=== PATIENT | male | born 1985 | race African-American/Black ===

== ENCOUNTER 2017-11-17 16:59 | Emergency (ER) | payer SELFPAY ==
[~2017-11-17] VITALS: Ht 188 cm; Wt 120.0 kg
[2017-11-17 17:00] VITALS: BP 165/92; PULSE 96; RESP 16; TEMP 99.5; O2SAT 98
--- NOTE | 2017-11-17 17:58 | PD ---
HPI Chief Complaint: Cold / Flu Symptoms Time Seen by Provider: 17:39 Travel History International Travel<30 days: No Contact w/Intl Traveler<30days: No Traveled to known affect area: No History of Present Illness HPI 32-year-old male presents emergency department complaining of cough, congestion , subjective fever, diarrhea for 3 days. 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 States that he is tried couple of medications [id number] to include TheraFlu and Mucinex without significant relief. States he does occasionally have chest discomfort with coughing. Denies shortness of breath, abdominal pain. Patient denies chronic medical issues or medication use. PFSH Past Medical History Medical History: Denies Significant Hx Past Surgical History Surgical History: No Previous Surgery Social History Alcohol Use: Yes (occasional) Tobacco Use: Yes (1ppd) Substance Use: No Allergies-Medications (Allergen,Severity, Reaction): Coded Allergies: No Known Allergies (Unverified , 11/17/17) Reported Meds & Prescriptions Reported Meds & Active Scripts Active No Active Prescriptions or Reported Medications Review of Systems Except as stated in HPI: all other systems reviewed are Neg Physical Exam Narrative GENERAL: Well-nourished, well-developed patient. SKIN: Focused skin assessment warm/dry. HEAD: Normocephalic. EYES: No scleral icterus. No injection or drainage. NECK: Supple, trachea midline. No JVD or lymphadenopathy. Pharynx mildly injected without tonsillar exudates CARDIOVASCULAR: Regular rate and rhythm without murmurs, gallops, or rubs. RESPIRATORY: Breath sounds equal bilaterally. No accessory muscle use. GASTROINTESTINAL: Abdomen soft, non-tender, nondistended. MUSCULOSKELETAL: No cyanosis, or edema. Tender to palpation of the right upper lumbar paraspinous region BACK: Nontender without obvious deformity. No CVA tenderness. Data Data Last Documented VS Vital Signs Date Time Temp Pulse Resp B/P (MAP) Pulse Ox O2 Delivery O2 Flow Rate FiO2 11/17/17 17:00 99.5 96 16 165/92 (116) 98 Orders Orders Influenzae A/B Antigen (11/17/17 17:39) Group A Rapid Strep Screen (11/17/17 17:39) Strep Culture (Group A) (11/17/17 17:03) MDM Medical Decision Making Medical Screen Exam Complete: Yes Emergency Medical Condition: Yes Differential Diagnosis Influenza, strep pharyngitis, viral syndrome, upper respiratory infection Narrative Course 32-year-old male presents emergency department complaining of cough, congestion , subjective fever, diarrhea for 3 days. 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 States that he is tried couple of medications [id number] to include TheraFlu and Mucinex without significant relief. States he does occasionally have chest discomfort with coughing. Denies shortness of breath, abdominal pain. Patient denies chronic medical issues or medication use. Temperature 99.5, heart rate 96. Flu A positive. Strep negative. Pt onset of symptoms were . Pt will be discharged with Tamiflu. Advised to have adequate fluid intake and proper nutrition. Advised to follow up with his PCP this week. Return for worsening or persistent symptoms. Diagnosis Primary Impression: Influenza A Referrals: Primary Care Physician Departure Forms: Tests/Procedures, Work Release Enter return to work date: Nov 20, 2017 Additional Instructions: Ensure adequate fluid intake. Take Tylenol or Motrin per package instructions for aches and pains. Follow-up with your primary care physician within 2-3 days. Avoid contact with others as you are contagious. Scripts Oseltamivir (Tamiflu) 75 Mg Cap 75 MG PO BID for Mgmt Viral Infection for 5 Days, #10 CAP 0 Refills Prov: Mamie Veloz 11/17/17 Disposition: 01 DISCHARGE HOME Condition: Stable Mamie Veloz Nov 17, 2017 17:58
[2017-11-17] MEDS ORDERED: OSEL75 PO (18:12)
== END 2017-11-17 18:49 | disposition home or self-care (01) ==
LOC: NEPC 16:59
DX: J09.X2 Influenza due to identified novel influenza A virus with other respiratory manifestations (principal); R19.7 Diarrhea, unspecified; F17.200 Nicotine dependence, unspecified, uncomplicated
CPT/HCPCS: 87081; 87804; 87880; 99283